=== PATIENT | male | born 1985 | race African-American/Black ===

== ENCOUNTER 2021-05-07 08:47 | Emergency (ER) | payer OTHER ==
[~2021-05-07] VITALS: Ht 167.6 cm; Wt 71.8 kg
[2021-05-07 10:01] LABS: PLATELET COUNT 182 K/uL (142-355)
[2021-05-07 10:10] LABS: POTASSIUM 4.6 mmol/L (3.6-5.2)
[2021-05-07 12:52] VITALS: BP 132/75; TEMP 98.3
== END 2021-05-07 12:53 | disposition home or self-care (01) ==
LOC: ED 08:47
PROVIDERS: Family Medicine
DX: R07.89 Other chest pain (principal); R51.9 Headache, unspecified; R10.84 Generalized abdominal pain
CPT/HCPCS: 80053; 81000; 82150; 82550; 83690; 84484; 85027; 86318; 93005; 99282; J1885

== ENCOUNTER 2021-05-21 09:27 | Emergency (ER) | payer OTHER ==
[~2021-05-21] VITALS: Ht 167.6 cm; Wt 71.7 kg
[2021-05-21 10:31] LABS: PLATELET COUNT 227 K/uL (142-355)
[2021-05-21 10:41] LABS: POTASSIUM 4.3 mmol/L (3.6-5.2); SODIUM 139 mmol/L (136-145)
[2021-05-21 10:45] LABS: PARTIAL THROMBOPLASTIN TIME 26.3 SECONDS (24.5-33.6)
[2021-05-21 12:41] VITALS: BP 133/72; TEMP 98.1
== END 2021-05-21 12:42 | disposition home or self-care (01) ==
LOC: ED 09:27
PROVIDERS: Family Medicine
DX: U07.1 COVID-19 (principal); J32.9 Chronic sinusitis, unspecified; R07.89 Other chest pain
CPT/HCPCS: 80053; 82550; 84484; 85027; 85610; 85730; 87635; 93005; 99283; U0003